=== PATIENT | female | born 1955 | race Two or more races ===

== ENCOUNTER 2019-08-16 05:11 | Emergency (ER) | payer OTHER ==
[~2019-08-16] VITALS: Ht 162.6 cm; Wt 63.5 kg
== END 2019-08-16 11:51 | disposition home or self-care (01) ==
LOC: ER 05:11 → CPU-OBS 05:26 → ER 05:26
DX: R07.89 Other chest pain (principal); M94.0 Chondrocostal junction syndrome [Tietze]
CPT/HCPCS: G0378; G0379; 93005